=== PATIENT | male | born 1960 | race Hispanic/Latino ===

== ENCOUNTER 2021-07-23 05:56 | Day surgery (SDC) | payer OTHER ==
[2021-07-23] MEDS ORDERED: ASPIRIN EC 325 MG TAB PO NR (06:32)
[2021-07-23 06:40] LABS: Basophils % (Auto) 0.6 % (0.0-1.8); Eosinophils # (Auto) 0.1 K/mm3 (0.0-0.4); Eosinophils % (Auto) 1.9 % (0.0-4.3); Hematocrit 45.4 % (35.5-45.6); Hemoglobin 14.8 gm/dl (11.8-15.2); Lymphocytes # (Auto) 1.7 K/mm3 (1.2-5.4); Lymphocytes % (Auto) 25.7 % (13.4-35.0); Mean Corpuscular HGB Conc 33 % (32-34); Mean Corpuscular Volume 90 fl (84-94); Monocytes # (Auto) 0.5 K/mm3 (0.0-0.8); Platelet Count 260 K/mm3 (140-440); Red Blood Count 5.06 M/mm3 (3.65-5.03); Red Cell Distribution Width 13.5 % (13.2-15.2)
[2021-07-23 06:52] LABS: INR 0.98 (0.87-1.13); Partial Thromboplastin Time 27.3 Sec. (24.2-36.6)
[2021-07-23 07:02] LABS: BUN/Creatinine Ratio 23; Blood Urea Nitrogen 21 mg/dL (9-20); Calcium 9.5 mg/dL (8.4-10.2); Hemolysis Index 12
[2021-07-23] MEDS ORDERED: HEPARIN/NS 5000 UNIT/500ML 1,000 ML IR ONE (07:21)
[2021-07-23] MEDS: SODIUM CHLORIDE 0.9% 500 ML 500 ML IV SCH ×2 (07:25→07:38)
[2021-07-23] MEDS: MIDAZOLAM 2 MG/2 ML INJ ONE ×2 (07:35→08:16)
[2021-07-23] MEDS: fentaNYL 100 MCG/2 ML INJ ONE ×2 (07:36→08:16)
[2021-07-23] MEDS: LIDOCAINE (2%) 20 MG/1 ML VIAL 20 ML MDV INFILTRATI ONE ×2 (07:36→08:17)
[2021-07-23] MEDS: HEPARIN 10,000 UNITS/10 ML VIAL ONE ×2 (07:36→08:19)
[2021-07-23] MEDS: VERAPAMIL 5 MG/2 ML INJ ONE ×2 (07:37→08:19)
[2021-07-23] MEDS: NITROGLYCERIN SYRINGE 3 ML ONE ×2 (07:38→08:19)
[2021-07-23] MEDS ORDERED: HYDROcodone/ACETAMINOPHEN 5-325 MG TAB PO PRN (08:38)
--- NOTE | 2021-07-23 08:43 | Short Stay Summary ---
Short Stay Documentation Date of service: 07/23/21 - History H&P: obtained from office - Allergies and Medications Current Medications: Allergies No Known Allergies Allergy (Unverified 07/23/21 06:07) Home Medications Medication Instructions Recorded Confirmed Last Taken Type AtorvaSTATin [Lipitor] 20 mg PO QHS 07/23/21 07/23/21 07/22/21 History Insulin Glargine,Hum.rec.anlog 28 unit SQ QHS 07/23/21 07/23/21 07/22/21 History [Lantus Solostar] Metoprolol Succinate [Toprol Xl] 25 mg PO DAILY 07/23/21 07/23/21 07/22/21 History lisinopriL [Zestril] 20 mg PO QDAY 07/23/21 07/23/21 07/23/21 History metFORMIN [Glucophage] 500 mg PO BID 07/23/21 07/23/21 07/21/21 History Active Medications Sodium Chloride (Nacl 0.9% 500 Ml) 500 mls @ 50 mls/hr IV DIRECT DANIEL Stop: 07/23/21 16:59 Last Admin: 07/23/21 07:38 Dose: 50 mls/hr - Brief post op/procedure progress note Date of procedure: 07/23/21 Pre-op diagnosis: Coronary artery disease Post-op diagnosis: same - Hospital course Hospital course: Uneventful post left heart cath - Disposition Condition at discharge: Good Disposition: 01 HOME / SELF CARE / HOMELESS Short Stay Discharge Plan Activity: advance as tolerated Weight Bearing Status: Non-Weight Bearing Diet: low fat, low cholesterol Wound: keep clean and dry Follow up with: PRIMARY CARE, [Primary Care Provider] - 7 Days
[2021-07-23] MEDS ORDERED: traMADol 50 MG TAB PO PRN (09:00)
[2021-07-23] MEDS ORDERED: SODIUM CHLORIDE 0.9% 1000 ML 1,000 ML IV SCH (09:00)
--- NOTE | 2021-07-23 10:27 | Electrocardiograph Report ---
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
[2021-07-23 10:45] VITALS: BP 128/53
--- NOTE | 2021-07-29 10:53 | Cardiac Catherization Report ---
DATE OF PROCEDURE: 07/23/2021 CORONARY ANGIOGRAM REPORT PROCEDURES PERFORMED: 1. Selective left and right coronary angiogram. 2. Left ventriculogram. REFERRING PHYSICIAN: Dr. Bush. FACILITIES MAINTENANCE SUPERVISOR: Faustino Delcid MD INDICATIONS: The patient is a 61-year-old gentleman with a history of hypertension, hyperlipidemia, diabetes and significant family history of coronary artery disease. The patient underwent a stress test in the office and noted to have ST elevation of the ____ and inferior defect on the stress test. In view of the family history and abnormal stress test, the left heart cath is being done. MODERATE SEDATION DETAILS: Moderate sedation was given under my direct supervision and continuous hemodynamic monitoring. Versed and fentanyl was given. Sedation start time 8:16 a.m., sedation end time 8:30 a.m. Total sedation time 14 minutes. PROCEDURE DETAILS: After obtaining written consent, the patient was draped using sterile technique. A 2% lidocaine was injected into the right wrist. A 5-Niuean vascular sheath was inserted into the right radial artery. A 5-Niuean JL3.5 catheter was used to selectively engage the left coronary artery. A 5-Niuean JR4 catheter was used to selectively engage the right coronary artery. A 5-Niuean JR4 catheter was used to perform a left ventriculogram. No complications occurred during the procedure. Hemostasis was achieved at the end of the procedure using manual pressure. SPECIMEN REMOVED: None. ESTIMATED BLOOD LOSS: Minimal. FINDINGS: 1. Hemodynamics: AO 142/69, LV 142, LVEDP was 10 mmHg. 2. Left ventriculogram done in 30-degree KAUFMAN projection shows normal LV systolic function, EF greater than 55%. ANGIOGRAM DETAILS: 1. Left main is cloacal. No significant stenosis noted. 2. LAD is a medium to large caliber vessel. There is an eccentric 30% proximal stenosis just after the takeoff of diagonal 1. 3. The circumflex is a large caliber codominant vessel, appears angiographically normal. 4. The RCA is a codominant vessel, appears angiographically normal. IMPRESSION: 1. Mild single vessel coronary artery disease involving the left anterior descending around 30%. 2. Preserved left ventricular systolic function. PLAN: 1. Aggressive risk factor modification. 2. Medical management of mild nonobstructive coronary artery disease. 3. Routine radial artery sheath care. TID: [id number] RECEIPT: [id number] NEFTALI/ENRIQUE/CARRIE
== END 2021-07-23 11:15 | disposition home or self-care (01) ==
LOC: CATHLABREC 05:56
PROVIDERS: ATTEND Internal Medicine Cardiovascular Disease
DX: R94.39 Abnormal result of other cardiovascular function study (principal); I25.10 Atherosclerotic heart disease of native coronary artery without angina pectoris; I10 Essential (primary) hypertension; E11.9 Type 2 diabetes mellitus without complications; E78.5 Hyperlipidemia, unspecified; Z79.899 Other long term (current) drug therapy; Z79.4 Long term (current) use of insulin; Z98.890 Other specified postprocedural states; Z83.3 Family history of diabetes mellitus; Z80.8 Family history of malignant neoplasm of other organs or systems; Z82.49 Family history of ischemic heart disease and other diseases of the circulatory system
CPT/HCPCS: 36415; 80048; 85025; 85610; 85730; 93005; 93010; 93458; 99156; C1894; J1644; J1815; J2250; J3010; J3490; J7040; Q9967